=== PATIENT | male | born 1975 | race Caucasian/White ===

== ENCOUNTER → 2022-12-26 | Outpatient (CLI) | payer OTHER ==
[~2022-12-26] MED LIST: CYCLOBENZAPRINE10 M1 PO; FENOFIBRATE134 MG PO; MELOXICAM5 MG PO
== END ==
LOC: RAD 08:37
DX: M23.222 Derangement of posterior horn of medial meniscus due to old tear or injury, left knee (principal); M25.561 Pain in right knee

== ENCOUNTER → 2024-01-30 | Outpatient (CLI) | payer OTHER | LOC: RAD 08:28 | DX: M25.561 Pain in right knee (principal); M25.562 Pain in left knee ==